=== PATIENT | female | born 1990 | race Caucasian/White ===

== ENCOUNTER → 2017-11-09 15:34 | Outpatient (CLI) | payer OTHER, SELFPAY ==
--- NOTE | 2017-11-09 15:36 | DI.US.S_ITS ---
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 Additional endovaginal scanning was necessary due to incomplete visualization of the adnexal and endometrial structures by transabdominal scanning. COMPARISON: [facility], US, US PELVIC+TRANSVAG, 07/31/2016, 14:12. FINDINGS: Transabdominal scanning: Limited scanning through the kidneys shows no hydronephrosis. No pathologic free abdominal or pelvic fluid. Endovaginal scanning: Uterus: Uterus is normal in size at 7.8 x 3.6 x 4.5 cm. The endometrium measures 5.0 mm in combined thickness. Intrauterine device is present in the superior aspect of the device may be embedded within the myometrium. Ovaries: Right ovary surgically absent. Dominant follicle involves the left ovary measures 17 mm. IMPRESSION: 1. Intrauterine device present with the superior aspect of the device possibly embedded within the superior myometrium. 2. Dominant left follicular cyst and the right ovary is not visualized. Dictated by: Que Wilson [facility] Interpreted: Asia Young MD on 11/09/2017 at 16:28 Approved by: Asia Young MD, PhD on 11/09/2017 at 16:58
== END ==
PROVIDERS: PCP Obstetrics & Gynecology; Visit Provider Obstetrics & Gynecology
DX: N92.0 Excessive and frequent menstruation with regular cycle (principal); N83.202 Unspecified ovarian cyst, left side; Z86.018 Personal history of other benign neoplasm
CPT/HCPCS: 76830; 76856

== ENCOUNTER → 2018-01-11 12:56 | Outpatient (CLI) | payer OTHER, SELFPAY ==
[2018-01-11 14:39] LABS: Free T3, Triiodothyronine Free 3.35 pg/mL (2.77-5.27); Free T4, Direct Thyroxine 1.15 ng/dL (0.78-2.19)
[2018-01-11 14:53] LABS: Thyroid Stimulating Hormone 1.04 uIU/mL (0.47-4.68)
[2018-01-15 15:02] LABS: Thyroid Peroxidase Antibodies 1 IU/mL (< 9)
== END ==
PROVIDERS: PCP Obstetrics & Gynecology; Visit Provider Obstetrics & Gynecology
DX: E34.9 Endocrine disorder, unspecified (principal)
CPT/HCPCS: 36415; 84439; 84443; 84481; 86376

== ENCOUNTER → 2019-01-14 17:11 | Outpatient (CLI) | payer OTHER, SELFPAY ==
[2019-01-14 18:04] LABS: Appearance Urine UA CLEAR; Bilirubin Urine UA NEGATIVE (NEGATIVE); Color Urine UA YELLOW; Glucose Urine UA NEGATIVE (Negative); Ketones Urine UA NEGATIVE (NEGATIVE); Leukocyte Esterase Urine UA NEGATIVE (NEGATIVE); Nitrite Urine UA NEGATIVE (Negative); Occult Blood Urine UA NEGATIVE (Negative); Protein Urine UA NEGATIVE (Negative); Urobilinogen Urine UA 0.2 E.U./dL (0.2); pH Urine UA 6.5 (4.5-8.0)
[2019-01-14 18:09] LABS: Add Manual Diff / Slide Review NO; Basophils Absolute Auto 0 /uL (0-100); Basophils Percent Auto 0.4 % (0-2); Eosinophils Absolute Auto 100 /uL (0-450); Eosinophils Percent Auto 1.1 % (2-4); Hematocrit 30.7 % (36-46); Hemoglobin 10.9 g/dL (12.0-16.0); Lymphocytes Absolute Auto 1600 /uL (1100-4500); Lymphocytes Percent Auto 21.4 % (25-40); Mean Corpuscular HGB Conc 35.3 % (30-36); Mean Corpuscular Hemoglobin 30.9 PG (26-34); Mean Corpuscular Volume 87.6 fL (80-100); Monocytes Absolute Auto 400 /uL (0-900); Monocytes Percent Auto 4.8 % (3-14); Neutrophils Absolute Auto 5500 /uL (1500-7000); Neutrophils Percent Auto 72.3 % (50-75); Platelet Count 204 X10^3/uL (150-400); Red Blood Cell Count 3.51 X10^6/uL (4.0-5.2); Red Cell Distribution Width 12.7 % (11.6-14.8); White Blood Cell Count 7.6 X10^3/uL (4.5-11.0)
[2019-01-14 18:40] LABS: Hepatitis B Surface Antigen NEGATIVE s/c (NEGATIVE); Rubella Antibody IgG 17.6 IU/mL (>15)
[2019-01-14 19:03] LABS: HIV 1 and 2 Antibody NEGATIVE (NEGATIVE); Hep C Virus Ab w/Reflex Quant NEGATIVE s/c (NEGATIVE)
[2019-01-16 15:38] LABS: RPR Screen Nonreactive (Nonreactive)
[2019-01-16 22:35] LABS: AFP, Serum 59.3 ng/mL; Brief History NTD NO; Calc Gestational Age 18.9; Cigarette Smoker NO; Donated Egg NOT GIVEN; Donor Egg Age NOT GIVEN; Inhibin A, Dimeric 144 pg/mL; Maternal Weight 163 lbs; Number of Fetuses 1; Previous Pregnancy Down Syndro NOT GIVEN; hCG, MoM 0.86; hCG, Serum 17.7 IU/mL
== END ==
PROVIDERS: PCP Obstetrics & Gynecology; Visit Provider Obstetrics & Gynecology
DX: Z34.01 Encounter for supervision of normal first pregnancy, first trimester (principal)
CPT/HCPCS: 36415; 80055; 81003; 82105; 82677; 84702; 86336; 86703; 86787; 86803; 86850; 86900; 86901; 87086

== ENCOUNTER → 2019-02-10 14:12 | Outpatient (CLI) | payer OTHER, SELFPAY ==
--- NOTE | 2019-02-10 14:14 | DI.US.S_ITS ---
PROCEDURE: US OB >= 14 WEEKS FETUS INDICATIONS: ANATOMY OUTSIDE/PRIOR DATING DATA: Last menstrual period (LMP): 09/04/2018. LMP-based estimated date of delivery (ANDREAS): 06/11/2019. First dating scan (date and location): 01/14/2019. Estimated date of delivery (ANDREAS) from first dating scan: 06/09/2019. TECHNIQUE: Real-time scanning was performed of the fetus, with image documentation and biometric measurements. COMPARISON: [facility], , OB >= 14 WEEKS FETUS, 01/14/2019, 17:00. FINDINGS: General: A single living intrauterine gestation is present. Presentation: Breech. Placenta: Placental position is anterior, without previa Amniotic fluid index: 11.7 cm, normal range is 5-24 cm. heart rate: 131 beats per minute. Maternal cervical canal: 3 cm long. Normal lower limit is 2.5 cm. biometrics: Biparietal diameter: 5.4 cm. 22 weeks 3/7 days Head circumference: 20.8 cm. 22 weeks 6/7 days. Abdominal circumference: 17.5 cm. 22 weeks 3/7 days. Femur length: 4 cm. 23 weeks 0/7 days. Estimated gestational age from initial scan: 23 weeks 0/7 days. Composite gestational age from present scan: 22 weeks 5/7 days. Estimated weight and percentile: 525 g. 28th percentile. Measurement variability for biometric dating: +/- 7 days from 14 weeks to 15 weeks 6 days gestation, +/- 10 days from 16 weeks to 21 weeks 6 days gestation, +/- 2 weeks from 22 weeks to 27 weeks 6 days gestation, +/- 3 weeks for 28 weeks gestation or later. weight reference: 4500 g or EFW >90/95% is considered macrosomia or large for gestational age. EFW <10% is small for gestational age. EFW 5% or less is considered intra-uterine growth restriction. Anatomic survey: Neuro: Ventricles are non-dilated at less than 10 mm. Cisterna magna is normal at 3-11 mm. Cerebellum is normal in size and morphology. Nuchal skin fold: Normal at less than 6 mm between 14-21 weeks gestational age. Face: Nose and lips, facial profile are normal. Spine: No evidence for spina bifida. Heart: 4-chambered heart is present, with normal ventricular outflow tracts. Diaphragm: Diaphragm is intact. Stomach: Left-sided stomach is present. Kidneys: No hydronephrosis. Normal is less than 5 mm in 2nd trimester, less than 7 mm in 3rd trimester. Cord: 3-vessel cord has orthotopic insertion. Bladder: Normal in size. Extremities: All 4 extremities identified. Maternal kidneys are normal. No hydronephrosis. IMPRESSION: 1. Turcios living intrauterine at 22 weeks 5/7 days based on today's ultrasound. This is concordant with the external assessment and there is expected interval growth. 2. Normal placenta and amniotic fluid. 3. Normal and complete anatomic survey. Dictated by: Thiago Mulligan M.D. on 02/10/2019 at 16:21 Approved by: Thiago Mulligan M.D. on 02/10/2019 at 16:27
== END ==
PROVIDERS: PCP Obstetrics & Gynecology; Visit Provider Obstetrics & Gynecology
DX: Z34.02 Encounter for supervision of normal first pregnancy, second trimester (principal); Z3A.23 23 weeks gestation of pregnancy
CPT/HCPCS: 76811

== ENCOUNTER → 2019-05-21 17:25 | Outpatient (CLI) | payer OTHER, SELFPAY ==
[2019-05-22 13:36] LABS: Strep Grp B PCR NEG for Grp B Strep
== END ==
PROVIDERS: PCP Obstetrics & Gynecology; Visit Provider Specialist
DX: Z34.03 Encounter for supervision of normal first pregnancy, third trimester (principal)
CPT/HCPCS: 87653

== ENCOUNTER 2019-06-08 05:25 | Inpatient (IN) | payer OTHER, SELFPAY ==
--- NOTE | 2019-06-08 05:39 | PM.OBHP.1 ---
OB HPI Date/Time Date of admission: 06/08/19 Date Patient Seen: 06/08/19 Time Patient Seen: 05:39 History of Present Condition Chief complaint: LABOR : 1 Para: 0 Estimated Date of Delivery: 06/11/19 Estimated Gestational Age (weeks): 39 Narrative: Concepción Sneed is a 29 year old female admitted in active labor History of Present care: good care, initiated at week # (9), number of visits (11) and pounds weight gain (27) Dating criteria: LMP confirmed by 1st trimester US Ultrasounds: normal 1st trimester US and normal mid trimester US Obstetrical complications: none Medical complications: none Preadmission Labs Blood type: O (+) positive -: Antibody screen: negative, GBS status: negative, HBsAG: negative, HIV: negative and RPR/VDLR: negative -: Chlamydia screen: not detected and Gonorrhea screen: not detected -: Rubella: immune and Varicella: immune HCAB: negative PAP: Normal Quad screen: Normal 1 hr GTT: 84 Evaluation Evaluation Baseline heart rate: 140 Variability: Moderate (11-25) monitor accelerations: Present monitor decelerations: Absent Contraction Frequency (minutes): 3 Uterine Contraction Intensity: Strong/Firm Category of Tracing: I Cervical dilation (cm): 6 Cervical effacement (%): 100 station: 0 PFSH Surgical History (Updated 09/11/17 @ 06:05 by Conversion Provider) History of third molar tooth extraction History of tonsillectomy Status post breast lumpectomy Status post hernia repair Status post ovarian cystectomy (09/25/16) Social History Smoking Status: Never smoker Meds Home Medications and Allergies Home Medications Medication Instructions Recorded Confirmed Type prenat.vits,truong,dzw-rzcp-akxva 1 tab PO DAILY 10/31/18 10/31/18 History Allergies Allergy/AdvReac Type Severity Reaction Status Date / Time oxycodone [OXYCODONE] AdvReac Intermediate NAUSEA AND Unverified 08/22/17 12:30 VOMITING. Review of Systems Review of Systems Narrative: Good movement. Mild headache but no scotomata, epigastric pain. No leakage of fluid. ROS Unobtainable: All systems reviewed & are unremarkable except as noted in HPI and below Exam Vital Signs (past 8 hours): Blood pressure 122/83, pulse 71, temperature 97.2? Narrative Exam Narrative: HEENT exam within normal limits. Lungs are clear to auscultation percussion. Heart is regular rate and rhythm no S3-S4 or murmurs. Abdomen is gravid and nontender. Fetus is vertex. Extremities with trace edema and nontender Assessment and Plan Assessment and Plan Assessment and Plan narrative: Term in active labor. Anticipate vaginal delivery.
[2019-06-08 06:13] VITALS: BP 123/62
[2019-06-08 06:17] LABS: Add Manual Diff / Slide Review NO; Basophils Absolute Auto 100 /uL (0-100); Basophils Percent Auto 1.1 % (0-2); Eosinophils Absolute Auto 100 /uL (0-450); Eosinophils Percent Auto 0.5 % (2-4); Hematocrit 41.4 % (36-46); Hemoglobin 14.2 g/dL (12.0-16.0); Lymphocytes Absolute Auto 2800 /uL (1100-4500); Lymphocytes Percent Auto 26.2 % (25-40); Mean Corpuscular HGB Conc 34.4 % (30-36); Mean Corpuscular Hemoglobin 30.5 PG (26-34); Mean Corpuscular Volume 88.7 fL (80-100); Monocytes Absolute Auto 600 /uL (0-900); Neutrophils Absolute Auto 7200 /uL (1500-7000); Neutrophils Percent Auto 66.2 % (50-75); Platelet Count 201 X10^3/uL (150-400); Red Blood Cell Count 4.66 X10^6/uL (4.0-5.2); Red Cell Distribution Width 14.2 % (11.6-14.8); White Blood Cell Count 10.8 X10^3/uL (4.5-11.0)
[2019-06-08] MEDS: ONDANSETRON 4 MG/2 ML INJ IV (09:26)
[2019-06-08] MEDS: LACTATED RINGERS 1,000 ML 100 ML IV (09:27)
[2019-06-08] MEDS: OXYTOCIN PREMIX 30 UNIT/500 ML PLAST..BAG IV (10:29)
--- NOTE | 2019-06-08 12:15 | PM.OBPRVD ---
Labor & Delivery Delivery date: 06/08/19 Intrapartal events: None Delivery augmentation: pitocin Delivery monitor: external FHT and external uterine Route of delivery: L&D Laceration Description: Perineal - 1st Degree Delivery repair: vicryl (3-0) Estimated blood loss (mL): 200 Anesthesia type: Epidural Narrative: Patient arrived on Labor and delivery in active labor. She received an epidural catheter for pain control. heart tones category 1 to category 2 throughout labor. She was AROM for thin meconium-stained fluid. With the start of pushing the patient's contractions decreased so she had Pitocin started at up to 6 milliunits. Patient delivered spontaneously, over an intact perineum. There was a nuchal cord. The viable female infant was placed on maternal abdomen. After the cord stopped pulsating the cord was clamped, cut, and cord bloods obtained. The placenta delivered spontaneously, intact, with 3 vessels. There are no cervical or vaginal tears. A first-degree perineal tear was repaired with 3 0 chromic suture. Both infant mother doing well. [place] Baby 1: Infant gender: Female Presentation: vertex position: Right Occiput Anterior Placenta delivery description: Spontaneous cord vessel description: Nuchal Cord score (1 min): 9 score (5 min): 9 Plan for aftercare: Routine care
[2019-06-08] MEDS: IBUPROFEN 600 MG TABLET PO ×2 (16:15→21:55)
[2019-06-08] MEDS: LANOLIN OINT 7 GM 1 APPLIC TOP (17:52)
[2019-06-08] MEDS: DERMOPLAST SPRAY 20% 60 ML 1 SPRAY TOP (17:54)
[2019-06-08] MEDS: ACETAMINOPHEN 325 MG TABLET 650 MG PO ×2 (18:06→23:58)
[2019-06-09] MEDS: IBUPROFEN 600 MG TABLET PO ×2 (03:57→13:32)
[2019-06-09] MEDS: ACETAMINOPHEN 325 MG TABLET 650 MG PO (06:22)
[2019-06-09 07:07] LABS: Hematocrit 33.6 % (36-46); Hemoglobin 11.6 g/dL (12.0-16.0)
--- NOTE | 2019-06-09 09:46 | P.DS_ITS ---
Discharge Providers Provider Date of admission: 06/08/19 05:25 Discharge Date: 06/09/19 Primary care physician: Viry Bravo MD Consults: 06/08/19 06:13 Consult to Anesthesiology Urgent Comment: Consulting Provider: Anesthesiologist Reason for consultation: Epidural Has provider been notified: No 06/09/19 12:13 Consult to Security Guard Dispatcher Routine Comment: Discharge provider: Mara Walton MD Summary Discharge Diagnosis (1) Vaginal delivery: Status: Acute Time Spent with Patient Time attestation: Total time spent providing and/or coordinating discharge services: Objective Labs Result Diagrams: 06/09/19 06:53 Labs: Laboratory Results - last 24 hr 06/09/19 06:53 Hgb 11.6 L Hct 33.6 L Exam Vital Signs (past 8 hours): Blood pressure 98/56, pulse of 70, temperature 97.7? Narrative Exam Narrative: Abdomen is soft, nontender. Uterus is firm, at U, nontender. Repair is intact. Mild lochia. Extremities without edema and nontender. Patient's blood type is O positive, she is rubella immune. Patient did received Tdap in the 3rd trimester. Discharge Plan Discharge Plan Patient Disposition: Home Discharge orders & Medications Prescriptions: New ibuprofen 600 mg Tablet 600 mg PO Q6HR PRN (Reason: Pain, Mild (1-3)) Qty: 30 RF: 0 Continued prenat.vits,truong,kzr-eggl-ljqut tablet 1 tab PO DAILY RF: 0 Follow up/Referrals: Mara Walton MD [Physician] - 1 Month Viry Bravo MD [Primary Care Provider] - Diet/Activity/Treatments Diet: Regular Activity: Nothing in vagina for 4 weeks. Showers not baths. Skin/Wound/Dressing Care Report to your healthcare provider any signs of infection, such as:: chills, fever and increased pain Discharge Data Primary Care Provider: Viry Bravo Attending Provider: Mara Walton Admit Date/Time: 06/08/19 05:25
[2019-06-09 13:41] VITALS: BP 98/56; PULSE 70; RESP 16; TEMP 36.5
== END 2019-06-09 15:25 | disposition home or self-care (01) | DRG 807 ==
PROVIDERS: Admitting Provider Specialist; PCP Obstetrics & Gynecology; Visit Provider Specialist
DX: O70.0 First degree perineal laceration during delivery (principal); Z37.0 Single live birth; Z3A.39 39 weeks gestation of pregnancy; O77.0 Labor and delivery complicated by meconium in amniotic fluid
CPT/HCPCS: 01967; 36415; 59050; 59400; 59409; 85014; 85018; 85025; 86850; 86900; 86901; G0379; J2405; J2590

== ENCOUNTER → 2021-12-06 09:52 | Outpatient (CLI) | payer OTHER, SELFPAY ==
--- NOTE | 2021-12-06 09:55 | DI.US.S_ITS ---
PROCEDURE: US PELVIC COMPLETE INDICATIONS: bleeding TECHNIQUE: Real-time scanning was performed of the pelvic organs, with image documentation. Additional endovaginal scanning was necessary due to incomplete visualization of the adnexal and endometrial structures by transabdominal scanning. COMPARISON: [facility], , US PELVIC COMPLETE, 11/09/2017, 16:05. FINDINGS: Uterus: Uterus is anteverted and normal in size at 8.7 x 3.4 x 3.6 cm. The myometrium is homogeneous. The endometrium measures 4 mm combined thickness. The IUD is seen low lying and potentially within the myometrium on a few images. Ovaries: The right ovary is surgically absent. The left ovary measures 5 x 2.1 x 2.6 cm. Adjacent to the left ovary, there is an anechoic structure that measures 6.9 x 2.7 x 6 cm. Other: No pathologic free abdominal or pelvic fluid. IMPRESSION: The IUD is abnormally placed, seen low lying and potentially within the myometrium on a few images. There is a 6.9 cm left paraovarian cyst seen. If it would be clinically appropriate, a followup pelvic ultrasound could be considered in 6 weeks to assure resolution/ improvement. Right oophorectomy. We strive to produce accurate, complete, and clear reports of imaging services. To assist us in improving patient care, this report was composed using standard report templates and voice recognition software. Therefore, it may contain abnormal punctuation, insertions and/or omissions. Occasional wrong-word or sound-alike substitutions may occur. Though we review the report and make efforts to correct it, we do recommend that the report be read carefully in proper context to recognize any text inaccuracies. Dictated by: Josesito Zapata M.D. on 12/06/2021 at 10:24 Approved by: Josesito Zapata M.D. on 12/06/2021 at 10:27
== END ==
PROVIDERS: PCP Nurse Practitioner Family; Referring Provider Obstetrics & Gynecology; Visit Provider Obstetrics & Gynecology
DX: T83.32XA Displacement of intrauterine contraceptive device, initial encounter (principal); N83.202 Unspecified ovarian cyst, left side; R58 Hemorrhage, not elsewhere classified; Z90.721 Acquired absence of ovaries, unilateral
CPT/HCPCS: 76830; 76856

== ENCOUNTER 2022-07-03 07:18 | Day surgery (SDC) | payer OTHER, SELFPAY ==
[2022-06-30 10:59] VITALS: BMI 25.4
[2022-07-03] VITALS (13 sets, daily range): BP systolic 96–130; BP diastolic 43–83; PULSE 51–79; RESP 10–18; TEMP 35.9–36.8; O2SAT 97–100; BMI 24.9
--- NOTE | 2022-07-03 | PATH_ITS ---
[facility] Accession Number: [id number] No. of containers..01 Tissue . 01 Material submitted: . fallopian tube - LEFT FALLOPIAN TUBE . 01 Diagnosis: Left Fallopian Tube, Salpingectomy: Fimbriated fallopian tube without significant pathologic abnormality. MRV 07/12/2022 1738 Local . 01 Electronically signed: . Sally Alonzo MD, Pathologist NPI- [id number] . 01 Gross description: . Received in formalin labeled left fallopian tube is a fragmented fallopian tube which is received in three separate segments which together measure 9.5 cm in length by up to 0.6 cm in diameter. The fimbriae are not grossly identified. Sections of the intact portions of the tube reveals a stellate lumen. Checker Product Design sections are submitted in A1. ([id number]) . Additional fragments of presumed fimbriae are submitted in cassette A2. ([id number]) /MRV 07/11/2022 0856 Local . 01 Pathologist provided ICD-10: N81.6 . 01 CPT . 369499 Specimen Comment: A courtesy copy of this report has been sent to [phone] Performed at: 01 [facility] [address] [place] [address] [address], [place], [place] [id number] MD Keron Brooks MD Phone: [phone]
[2022-07-03] MEDS: LACTATED RINGERS 1,000 ML 42 ML IV ×2 (08:10→10:07)
--- NOTE | 2022-07-03 09:00 | PM.PREOP ---
Pre-operative Note COVID-19 Criteria for continued procedure: Non-surgical alternatives not available or appropriate per current SOC Interval Note History & Physical reviewed/Exam performed by Physician: Yes Changes to H&P: No H&P completed within 30 days and has changed as indicated here:: 06/14/22
[2022-07-03 09:09] LABS: COVID19 -Nasal RAPID Negative (Negative)
[2022-07-03] MEDS: CEFAZOLIN 2 GM/100 ML PREMIX 100 ML IV (09:25)
--- NOTE | 2022-07-03 10:04 | PATH_ITS ---
Note [facility] Accession Number: [id number] TESTS RESULT FLAG UNITS REF RANGE LAB Clinician Provided Cytology Information No. of containers..01 Other (Miscellaneous) Source: LEFT TUBAL CYST FLUID DIAGNOSIS: LEFT TUBAL CYST FLUID NEGATIVE FOR MALIGNANT CELLS. THIS INTERPRETATION INCLUDES EVALUATION OF A CELL BLOCK. Pathologist ICD10: 01 N83.8 Signed out by: Erin Daily MD, Pathologist NPI- [id number] Performed by: Morris Dooley, Protection Mgr ([facility]) Gross description: 60 CC, BROWN, HAZY RECEIVED FRESH IN ORANGE CAP CONTAINER /RZA 07/04/2022 1043 Local FLAG LEGEND: L-Low Normal,H-High Normal,LL-Alert Low,HH-Alert High <-Panic Low,>-Panic High,A-Abnormal,AA-Critical Abnormal Performed at: 01 =Z [facility] [address] [place] [address] [address], [place] [address] Keron Brooks MD, Performed at: 01 [facility] [address] [place] [address] [address], [place], [place] [id number] MD Keron Brooks MD Phone: [phone]
--- NOTE | 2022-07-03 10:09 | SUR.OPER ---
Lithotomy on padded OR bed, head on pillow, arms secured on padded arm boards at <90 degrees abduction. Legs secured in padded yellow fins stirrups.
[2022-07-03] MEDS: BUPIVACAINE 0.5% W/ EPI (PF) 30 ML VIAL INJ (10:37)
--- NOTE | 2022-07-03 11:15 | P.OP_ITS ---
Operative Date/Time/Diagnoses Date of procedure: 07/03/22 Time of procedure: 11:15 Pre-op diagnosis: Left hydrosalpinx Symptomatic rectocele IUD in place Post-op diagnosis: same Procedure & Clinicians Procedure: Procedures Operation Date: 07/03/22 08:45 Actual Procedure Side Surgeon p Posterior Repair and Removal of Intrauterine Device Viry Bravo MD p Laparoscopic Salpingectomy Left Viry Bravo MD Indications: Symptomatic rectocele Left hydrosalpinx ParaGard IUD in place Surgeon: Viry Bravo Stained Glass Window Designer: Aliya Hearn Anesthesia Type: General and Local Operative Notes Findings: 8 cm left hydrosalpinx Normal left ovary Third-degree rectocele Normal liver, gallbladder, and appendix Normal uterus Right ovary and tube absent IUD strings visible 1.5 cm outside of the cervical os Closure Type: primary Specimen(s): left tube Applied: catheter (To continuous drainage) and other (Vaginal packing in place) Estimated blood loss (mL): 100 Blood products transfused: none Procedure in detail: The patient was taken to the operating room where she was placed in the dorsal supine position. After adequate general endotracheal anesthesia was achieved, she was placed in the dorsal lithotomy position, and prepped and draped in the usual sterile fashion. A time-out was performed. A bivalve speculum was placed into the vagina. The ParaGard IUD strings were visible. They were grasped with a ring forcep and the IUD was removed without difficulty. The cervical os was dilated to the # 7 Hegar dilator. The Zumi uterine manipulator was placed into the endometrial cavity. The single-tooth tenaculum was removed from the anterior lip of the cervix. The bivalve speculum was removed from the vagina. Attention was then turned to the abdomen where 6 cc of 0.5% Marcaine with epinephrine were injected in the umbilical fold through the previous incision. A 5 mm incision was made. The Veress needle was placed into the peritoneal cavity, and its placement confirmed by aspiration and drop test. The abdominal cavity was insufflated with 4 L of CO2. The Veress needle was removed, and a 5 mm trocar was placed without difficulty. Initial inspection of the pelvis and abdomen revealed the findings noted above. Two other 5 mm incisions were made after 6 cc of 0.5% Marcaine with epinephrine were injected through previous laparoscopy incisions, 4 cm lateral to the midline, at the level of the umbilicus. Two 5 mm trocars were placed under direct visualization. The probe was used to identify the uterus and the Left tube and ovary. There was an 8 cm cyst on the left tube. The tube was grasped with an atraumatic grasper. Using the power seal, the mesosalpinx on the left side was cauterized and cut all the way down to the cornua of the uterus. A point aspirate her was placed into the hydrosalpinx and a proximally 80 cc of clear yellow fluid was aspirated. The tube was then cut into smaller pieces and removed through the 5 mm trocars. The pelvis was copiously irrigated with warm normal saline. There was no bleeding noted. Attention was turned to the vagina where the Zumi uterine manipulator was removed from the uterus. Allis clamps were placed at the mucocutaneous junction. Wide Allis clamps were placed at the midline of the rectocele, approximately 6. 10 cc of 0.25% Marcaine with epinephrine were injected on the perineal body and submucosally on either side of the Allis clamps. A small triangular piece of tissue was removed from the perineal body. The mucosa was undermined using Metzenbaum scissors and the wide Allis clamps were moved to the edges of the mucosa. The fascia was taken down off of the mucosa using an open moistened Ray-Shruthi and a # 10 blade. The fascia was reapproximated using 0 Vicryl with interrupted sutures. The excess vaginal mucosa was excised. The mucosa was closed using 2-0 Vicryl with simple interrupted sutures including the underlying fascia to close the space. On the perineum 0 Vicryl was used to close the transverse perineal muscles. 2-0 Vicryl was used to close the more superficial layer. The skin was closed with 2 0 chromic in a subcuticular fashion. A moistened vaginal packing was placed into the vagina. A Edwards catheter was left in place. There was 300 cc of clear yellow urine in the Edwards bag. Sponge, lap, and instrument counts were correct x2. The patient tolerated the procedure well, and was taken to PACU in stable condition. Complications: none Post-operative Condition: stable Disposition: PACU Plan for aftercare: To acute care after recovery
[2022-07-03] MEDS: ONDANSETRON 4 MG/2 ML INJ IV (13:12)
[2022-07-03] MEDS: TRAMADOL 50 MG TABLET PO ×2 (13:32→20:47)
[2022-07-03] MEDS: LACTATED RINGERS 1,000 ML 100 ML IV ×2 (13:33→23:34)
[2022-07-03] MEDS: MORPHINE 2 MG/ML INJ IV ×2 (15:00→21:41)
[2022-07-03] MEDS: ACETAMINOPHEN 325 MG TABLET 650 MG PO ×2 (15:20→20:45)
[2022-07-03] MEDS: BENZOCAINE/MENTHOL 1 LOZ PKT 1 EACH PO (17:19)
[2022-07-03] MEDS: KETOROLAC 30 MG/ML VIAL IV ×2 (18:00→23:34)
--- NOTE | 2022-07-03 19:33 | PC.NURSE ---
Pt arrived from PACU this late this a.m. VSS, afebrile on RA. She is A&Ox4, avelar in place draining adequate yellow urine. Pain to lower abdomen rated at 5/10 not well controlled with prn tramadol and MD notified. Per orders administered scheduled tylenol and x1 dose 2 mg IV morphine with good effect. Pt is able to tolerate lunch and dinner. Lap sites , c/d/i. +BS x, hypoactive. Crista pad with minimal bleeding, pad changed. Call light in reach, bed alarm on, continuous monitoring.
[2022-07-03] MEDS: SPIRONOLACTONE 25 MG TABLET PO (20:45)
[2022-07-04 00:15] VITALS: BP 92/42; PULSE 58; RESP 18; TEMP 36.6; O2SAT 96
[2022-07-04 03:32] VITALS: BP 96/47; PULSE 56; RESP 17; TEMP 36.5; O2SAT 100
[2022-07-04] MEDS: KETOROLAC 30 MG/ML VIAL IV (05:06)
[2022-07-04] MEDS: MORPHINE 2 MG/ML INJ IV ×2 (05:07→08:51)
[2022-07-04 07:56] VITALS: BP 105/54; PULSE 62; RESP 18; TEMP 36.5; O2SAT 100
[2022-07-04] MEDS: ACETAMINOPHEN 325 MG TABLET 650 MG PO (08:13)
--- NOTE | 2022-07-04 08:48 | CM.DANOTE ---
DCP: Case received, EMR reviewed and met with patient. Introduced self and role. Completed DCP assessment based upon information currently available. Patient is a 32 year old female who admitted yesterday morning to the care of Dr. Bravo, LABOR UNION BUSINESS REPRESENTATIVE. PCP: Dr. Pringle. Payer: confirmed: [employer] [place]. Patient came to the hospital via private vehicle for a surgical procedure. Patient had posterior repair and removal of intrauterine device, and laparoscopic salpingectomy. Met with patient in her room. She was sitting up having breakfast, alert and oriented, pleasant. Confirmed that she resides in [place] with spouse, Price. She is independent, is employed at [employer]. P: Patient is being discharged home today with no needs. Aaliyah Chen RN/Telehealth Coordinator Discharge Planning/Care Management CM Discharge Assessment Start: 07/04/22 08:46 Freq: Status: Active Protocol: Document 07/04/22 08:46 (Rec: 07/04/22 08:48 [id number]) Discharge Planning Assessment Assigned Finance Accounting Internship Aaliyah Chen RN/Telehealth Coordinator Advance Directives? No History Provided By Patient,Medical Record Prior Living Arrangements House Household Members spouse,children Type of transporation used prior to Drives own vehicle admit Independent with ADL's Yes Is patient alert and oriented? Yes Caregiver for Another No Barriers to Discharge No Discharge Plan Home Transportation Arrangement Spouse Referrals Initiated None needed Whiteboard Updated in Patient Room with Yes name and ext. # of Finance Accounting Internship Review Status In Process Next Review Type Continued Stay Review Pre-Anesthesia Assessment Start: 06/30/22 10:59 Freq: Status: Complete Protocol: Document 06/30/22 10:59 [facility] (Rec: 06/30/22 11:04 [facility] [id number]) Pre-Anesthesia Assessment Patient Information Reviewed Via Chart Review Primary Care Provider Rica Pringle Seen Specialist in Last 12 Months Yes Specialist Seen Psychologist Experimental Primary Language Malian Sign Out Clerk Required No Height 5 ft 4 in Weight 148 lb Body Mass Index (BMI) 25.4 Anesthesia Review Requested No Cloth Burler No Smoking Status Current every day smoker History of Falling (Recent or History of No ) Patient is completely paralyzed or No completely immobile Mental Status Oriented to own ability Hx Sleep Apnea No Currently Taking a Beta [place] No Anti-Coagulant Therapy No Has a Director Of Physician Practices No Cardiac Testing No Hx Pacemaker/ICD No Pacemaker Rep Required? No Urinary Catheter Present No Hx Urinary Self Catheterization No Diabetes No Marital Status Lives With spouse,children Patient Discharge Plan Description Return Home Advance Directives? No
[2022-07-04] MEDS: TRAMADOL 50 MG TABLET PO (10:15)
[2022-07-04 11:22] LABS: Hematocrit 30.9 % (36-46); Hemoglobin 10.5 g/dL (12.0-16.0)
--- NOTE | 2022-07-04 11:35 | PC.NURSE ---
Addendum entered by Xenia Lambert R.N. 07/04/22 13:24: Pt eats lunch and continues to mobilize around the room without dizziness. She is cleared for discharge. Father at bedside supportive. She verbalizes understanding of discharge medications, activity, site care, as well s s/sx of infection/complications and follow up appointments. She is escorted via w/ch to private vehicle with father and all of her belongings at approximately 1300 this afternoon. Original Note: Pt is A&OX3, VSS, afebrile on RA. (SBP 90's-low 100's this a.m.) pt usually takes spironolactone midday, per orders held medication this a.m.. MD at bedside evaluating patient, valentino escobedo'at 0600, as well as vaginal packing. Scant bleeding to luz maria pad. Abdominal lap site dressings, c/d/i. +BSx4. Pt tolerates 100% of breakfast well. She is cleared for discharge today, pending voiding.She reports pain to abdomen 5/10 this a.m. andpain medication, 2mg morphine PRN administered per request. Upon reassessment patient reports pain improved to 2/10 feeling pressure of air shifting around in lower abdomen. She is encouraged to call for assistance to void, but had not yet voided at 1000 a.m. Pt medicated with 50 mg tramadol per request for transport home. She is assisted to get up and ambulate at approximately 1030 and reports feeling light headed and whoozy. RN assisted patient to lie down and BP 101/57 HR 55 Upon sitting BP 99/54 HR 56 and upon standing BP 92/56 HR 54. MD notified of patient low BP, and not voiding. Bladder scan results 387ml, ordered to straight cath. Prior to straight cath patient is able to void and PVR=5ml. MD notified patient H/H (10.5/30.9)stable, and drinking 3 pitchers of water, voiding and symptoms improved SBP 110/56 HR 55.
== END 2022-07-04 13:00 | disposition home or self-care (01) ==
LOC: OR 07:19 → AC 12:00
PROVIDERS: PCP Nurse Practitioner Family; Referring Provider Obstetrics & Gynecology; Visit Provider Obstetrics & Gynecology
PROC: (CPT 58661; principal; 2022-07-03 08:45)
PROC: (CPT 58661; 2022-07-03 08:45)
DX: N70.11 Chronic salpingitis (principal); N81.6 Rectocele; Z30.432 Encounter for removal of intrauterine contraceptive device; N83.8 Other noninflammatory disorders of ovary, fallopian tube and broad ligament
CPT/HCPCS: 58661; 57250; 58301; 36415; 81025; 85014; 85018; 87635; C9803; J0690; J1100; J1885; J2250; J2270; J2405; J2704; J3010